=== PATIENT | male | born 1980 | race Caucasian/White ===

== ENCOUNTER 2023-02-09 09:49 | Emergency (ER) | payer MEDICARE, SELFPAY ==
[2023-02-09 10:00] VITALS: BP 105/85; PULSE 96; RESP 20; TEMP 38; O2SAT 97; BMI 25.0
--- NOTE | 2023-02-09 10:11 | EXP.UTC ---
Discharge Plan Disposition Patient Disposition: Home, Self-Care Condition: Good Prescriptions Prescriptions: New xplbmrwyjymxdcs-poqrilyyo-XV [Bromfed DM] 2-30-10 mg/5 mL Syrup 10 ml PO Q4H PRN (Reason: Cough) Qty: 200 0RF Referrals Follow up/Referrals: Iftikhar Tello [Primary Care Provider] - See instructions Activity Restrictions/Add. Instructions Additional Instructions/Restrictions: *Monitor Temp, Over the counter Motrin or Tylenol as directed/as needed Tylenol every 4 hours and Motrin every 6 hours (as long as your family doctor has told you that you can take it) for fever or pain. and straight to ER if unable to lower temp less than 101.0 after medication given *Warm salt water gargles may help to soothe the throat *Throat Lozenges? *Warm fluids like tea with honey may help to soothe the throat? *Sleep elevated *Humidifier/Vaporizer *Bromfed may cause drowsiness. Know how it effects you (your child) before driving, caring for small child, or sending your child to school. Not other antihistamines/allergy medications while taking bromfed Your throat swab was sent for culture. Those results are typically sent to your primary care. Be sure to follow up in 2-3 days with your family doctor/primary care physician if no improvement so they can review those result and treat if necessary. If you don?t have a primary care doctor, I recommend you get one but in the mean time, you will have to return to a walk in clinic Follow up IMMEDIATELY for new or worsening symptoms or no Noticeable improvement over the next 48-72 hours. 911 for difficulty breathing or swallowing You were tested for today for COVID19 your test result should be back in the next 24 hours Your results will be on your [facility] Portal for you to look at there If you are positive you will need to Quarantine for 5 days Clinical Impressions Clinical Impression: Viral syndrome Instructions Patient Instructions: DI for Viral Syndrome, DI for Fever (Symptom) -- Adult Discharge ED Provider: Kenya Coto [facility] HPI General Stated complaint: body ache vomiting dsouza fever 102.1 Mode of Arrival: Ambulatory Source of Information: Patient Limitations: No Limitations Time Seen by Provider: 02/09/23 10:11 Description of Symptoms (Recalled from Triage Doc. by RN): PATIENT C/O COUGH, BODY ACHES, HEADACHE AND FEVER X 1.5 DAYS HEENT Symptoms (Recalled from RN notes): Yes Resp Symptoms (Recalled from RN notes): Yes Skin Symptoms (Recalled from RN notes): No MS Symptoms (Recalled from RN notes): No Functional Status (Recalled from RN notes): WNL History of Present Illness Provider Complaint: Patient state that he hasnt felt well for a couple of days State that he has been having fever, chills, body aches and cough States he isnt coughing anything up and feels like he has the flu or something States that he was up most of the night with fever so this morning he came in to get checked Related Data Previous Rx's Medication Instructions Recorded bayyyoixqtmprsc-ddeqpzjqipxpftm-RD 10 ml PO Q4H PRN Cough #200 mL 02/09/23 2 mg-30 mg-10 mg/5 mL oral syrup (Bromfed DM) Allergies Allergy/AdvReac Type Severity Reaction Status Date / Time No Known Allergies Allergy Verified 02/09/23 10:09 Worker's Comp Is this a Worker's Comp case?: No [facility] Disclaimer: The information contained in this section may have been updated after the patient was seen, as this information can be updated by other users. Medical History (Updated 02/09/23 @ 10:18 by Kenya Coto APRN) Carpal tunnel syndrome Surgical History (Updated 02/09/23 @ 10:10 by Evita Villanueva RN) S/P ACL repair Social History Smoking Status: Unknown if ever smoked alcohol intake: never current occupational status: unemployed Travel in the last 8 weeks: None ROS Obtained: Yes All systems reviewed & no additional complaints except a
[2023-02-09 10:20] VITALS: BP 105/85; PULSE 96; RESP 20; TEMP 38; O2SAT 97
[2023-02-09 10:21] LABS: UTC Influenza A Antigen Negative (Negative)
[2023-02-09 10:22] LABS: UTC Influenza B Antigen Negative (Negative)
== END 2023-02-09 10:26 | disposition home or self-care (01) ==
PROVIDERS: Emergency Provider Nurse Practitioner; PCP Family Medicine
DX: R05.9 Cough, unspecified (principal); R50.9 Fever, unspecified; B34.9 Viral infection, unspecified
CPT/HCPCS: 87635; 87804; 99204; 99212; G0463

== ENCOUNTER 2023-02-13 17:18 | Emergency (ER) | payer MEDICARE, SELFPAY ==
[2023-02-13 18:15] VITALS: BP 149/86; PULSE 86; RESP 19; TEMP 37; O2SAT 98; BMI 25.3
[2023-02-13 18:30] LABS: UTC Influenza A Antigen Negative (Negative)
[2023-02-13 18:31] LABS: UTC Influenza B Antigen Negative (Negative)
--- NOTE | 2023-02-13 18:39 | EXP.UTC ---
Discharge Plan Disposition Patient Disposition: Home, Self-Care Condition: Good Prescriptions Prescriptions: New promethazine-DM 6.25-15 mg/5 mL syrup 5 ml PO Q6H PRN (Reason: cough) Qty: 125 0RF prednisone [prednisone] 20 mg tablet 20 mg PO BID 5 Days Qty: 10 0RF guaifenesin [Mucinex] 600 mg tablet extended release 12hr 1,200 mg PO BID PRN (Reason: cough) Qty: 20 0RF azithromycin [Zithromax Z-Shyam] 250 mg tablet See Rx Instructions .ROUTE .COMPLEX 5 Days Qty: 6 0RF Rx Instructions: For 250 mg dose pack: take 500 mg today (day 1), then 250 mg for 4 days (days 2-5) No Action ugecyesdxlywgqf-ajlvsvezl-KS [Bromfed DM] 2-30-10 mg/5 mL Syrup 10 ml PO Q4H PRN (Reason: Cough) Qty: 200 0RF ondansetron 4 mg Tablet,Disintegrating 4 mg PO Q8H PRN (Reason: Nausea) Qty: 20 0RF Referrals Follow up/Referrals: Iftikhar Tello [Primary Care Provider] - See instructions Activity Restrictions/Add. Instructions Additional Instructions/Restrictions: Start antibiotic today. Be sure to complete entire prescription even if feeling better Monitor temp. Tylenol every 4 hours as needed and / or ibuprofen every 6 hours as needed ( As long as your primary care physician has told you that it ok to take both. For fever/aches/pains ER if no less than 101 despite Tylenol or Motrin Humidifier/vaporizer or hot steamy shower Mucinex during the day for your cough and cough suppressant only at night. Be sure to drink lots of water. *Promethazine DM cough syrup will cause drowsiness. Use only at night. No driving, operating machinery or caring for small children after taking it *Start steroid today. Helps with inflammation therefore, cough and wheezing. Follow directions on the package. Reviewed side effects. Patient reports taking them before. Follow up IMMEDIATELY for new or worsening of symptoms OR no noticeable improvement over the next 48-72 hours. 911 immediately for any life threatening symptoms such as chest pain or difficulty breathing Clinical Impressions Clinical Impression: Bronchitis Sinusitis Qualifiers: Sinusitis location: unspecified location Chronicity: unspecified Qualified Code(s): J32.9 - Chronic sinusitis, unspecified Instructions Patient Instructions: Acute Bronchitis, DI for Sinusitis Discharge ED Provider: Kenya Coto [facility] General Stated complaint: weak, SOA, cough Mode of Arrival: Ambulatory Source of Information: Patient Limitations: No Limitations Time Seen by Provider: 02/13/23 18:39 Description of Symptoms (Recalled from Triage Doc. by RN): PATIENT C/O BODY ACHES, HEADACHE, PRODUCTIVE COUGH, AND FATIGUE X 4 DAYS HEENT Symptoms (Recalled from RN notes): No Resp Symptoms (Recalled from RN notes): Yes Skin Symptoms (Recalled from RN notes): No MS Symptoms (Recalled from RN notes): No Functional Status (Recalled from RN notes): WNL History of Present Illness Provider Complaint: Patient states that he has been sick for over a week States that he has been having sinus congestion, headache, fatigue and cough which is now getting productive States that he is having pressure behind his eyes and over all not feeling any better so he came back in Related Data Previous Rx's Medication Instructions Recorded gelbhstjcxiifwt-zuplhgoevlknlbd-IA 10 ml PO Q4H PRN Cough #200 mL 02/09/23 2 mg-30 mg-10 mg/5 mL oral syrup (Bromfed DM) ondansetron 4 mg disintegrating 4 mg PO Q8H PRN Nausea #20 tabs 02/09/23 tablet azithromycin 250 mg tablet See Rx Instructions PO .COMPLEX 5 02/13/23 (Zithromax Z-Shyam) days #6 tabs guaifenesin 600 mg tablet, 1,200 mg PO BID PRN cough #20 tabs 02/13/23 extended release 12 hr (Mucinex) prednisone 20 mg tablet 20 mg PO BID 5 days #10 tabs 02/13/23 promethazine-DM 6.25 mg-15 mg/5 mL 5 ml PO Q6H PRN cough #125 mL 02/13/23 oral syrup Allergies Allergy/AdvReac Type Severity Reaction Status Date / Time No Known Allergies
[2023-02-13 18:54] VITALS: BP 149/86; PULSE 86; RESP 19; TEMP 37; O2SAT 98
== END 2023-02-13 18:55 | disposition home or self-care (01) ==
PROVIDERS: Emergency Provider Nurse Practitioner; PCP Family Medicine
DX: J20.9 Acute bronchitis, unspecified (principal); J01.90 Acute sinusitis, unspecified
CPT/HCPCS: 87804; 99212; 99214; G0463

== ENCOUNTER 2023-03-11 17:06 | Emergency (ER) | payer MEDICARE, SELFPAY ==
[2023-03-11 17:15] VITALS: BP 107/76; PULSE 90; RESP 16; TEMP 36.8; O2SAT 98; BMI 24.9
--- NOTE | 2023-03-11 17:25 | PC.NURSE ---
dr. sosa at [facility]
[2023-03-11 17:30] VITALS: BP 116/83; PULSE 96; O2SAT 98
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
--- NOTE | 2023-03-11 17:30 | CT_ITS ---
PROCEDURE INFORMATION: Exam: CTA Neck With Contrast Exam date and time: 03/11/2023 6:54 PM Age: 42 years old Clinical indication: Pain; Other: Neck; Additional info: Codey Ling face and neck TECHNIQUE: Imaging protocol: Computed tomographic angiography of the neck with contrast. 3D rendering (Not supervised by radiologist): MIP and/or 3D reconstructed images were created by the technologist. Radiation optimization: All CT scans at this facility use at least one of these dose optimization techniques: automated exposure control; mA and/or kV adjustment per patient size (includes targeted exams where dose is matched to clinical indication); or iterative reconstruction. Contrast material: ISOVUE; Contrast volume: 100 ml; Contrast route: INTRAVENOUS (IV); REPORTING DATA: Count of CT and Cardiac NM exams in prior 12 months: This patient has received 0 known CTs and 0 known cardiac nuclear medicine studies in the 12 months prior to the current study. COMPARISON: CT FACIAL BONES WO CON 03/11/2023 6:46 PM FINDINGS: Right common carotid artery: No stenosis. No dissection or occlusion. Right internal carotid artery: No stenosis of the extracranial segment. No dissection or occlusion. Right external carotid artery: No occlusion or stenosis of the origin. Left common carotid artery: No stenosis. No dissection or occlusion. Left internal carotid artery: No stenosis of the extracranial segment. No dissection or occlusion. Left external carotid artery: No occlusion or stenosis of the origin. Right vertebral artery: No stenosis. No dissection or occlusion. Left vertebral artery: No stenosis. No dissection or occlusion. Soft tissues: Please see the dedicated interpretation of the face for findings in that region. Bones/joints: No acute fracture. IMPRESSION: 1. Please see the dedicated interpretation of the face for findings in that region. 2. No vascular abnormality identified. REFERENCES: NASCET CRITERIA. The degree of stenosis in the cervical segment of the internal carotid artery is based on NASCET criteria. Normal is no stenosis. Mild is less than 50% stenosis. Moderate is 50-69% stenosis. Severe is 70% to 99% stenosis. Total occlusion is no detectable patent lumen.
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
[2023-03-11 18:00] VITALS: BP 115/71; PULSE 88; O2SAT 96
[2023-03-11 18:08] LABS: Basophils % 0.5 % (0.1-2.0); Eosinophils # 0.7 K/mm3 (0.0-0.4); Eosinophils % 13.4 % (0.1-12.0); Hematocrit 43.5 % (42.0-52.0); Hemoglobin 14.3 g/dL (14.1-18.0); Lymphocytes # 2.3 K/mm3 (0.7-4.5); Lymphocytes % 45.1 % (10-50); Mean Platelet Volume 8.6 fl (7.4-10.4); Monocytes # 0.3 K/mm3 (0.1-1.0); Monocytes % 4.9 % (1.7-9.3); Neutrophils # 1.8 K/mm3 (1.8-7.8); Neutrophils % 36.2 % (37.0-80.0); Platelet Count 254 K/mm3 (142-424); Red Blood Count 4.63 M/mm3 (4.60-6.20); Red Cell Distribution Width 13.9 % (11.5-17.5)
[2023-03-11 18:10] LABS: Anion Gap 15.3 mEq/L (5-15); Blood Urea Nitrogen 9 mg/dl (9-20); Calcium 9.2 mg/dl (8.4-10.2); Carbon Dioxide 24 mmol/L (22.0-30.0); Chloride 108 mmol/L (98-107); Creatinine Clearance Estimated 147 mL/min (50-200); Estimated Glomerular Filt Rate 107 ml/min (>60); GFR (African American) 129 ML/MIN (>60); Glucose 110 mg/dl (74-100); Potassium 4.3 mmoL/L (3.5-5.1); Sodium 143 mmol/L (136-145)
[2023-03-11 18:30] VITALS: BP 97/53; PULSE 77; O2SAT 96
--- NOTE | 2023-03-11 18:41 | PC.NURSE ---
pt to CT
--- NOTE | 2023-03-11 19:47 | PC.NURSE ---
rounded on pt no needs at this time
[2023-03-11 19:57] VITALS: BP 94/60; PULSE 88; RESP 16; TEMP 36.7
== END 2023-03-11 20:00 | disposition home or self-care (01) ==
PROVIDERS: Emergency Provider Emergency Medicine; PCP Family Medicine
DX: S02.2XXA Fracture of nasal bones, initial encounter for closed fracture (principal); R68.84 Jaw pain; F17.210 Nicotine dependence, cigarettes, uncomplicated; W22.8XXA Striking against or struck by other objects, initial encounter
CPT/HCPCS: 70486; 70498; 80048; 85025; 99284; Q9967

== ENCOUNTER 2023-04-12 11:53 | Emergency (ER) | payer MEDICARE, SELFPAY ==
[2023-04-12 11:54] VITALS: BP 114/75; PULSE 103; RESP 22; TEMP 36.9; O2SAT 96; BMI 24.4
--- NOTE | 2023-04-12 12:04 | EXP.UTC ---
Discharge Plan Disposition Patient Disposition: Home, Self-Care Condition: Good Prescriptions Prescriptions: New benzonatate [benzonatate] 100 mg capsule 100 mg PO TIDP PRN (Reason: Cough) Qty: 30 0RF methylprednisolone 4 mg Tablets,Dose Pack 4 mg PO DIRECTED Qty: 21 0RF amoxicillin-pot clavulanate 875-125 mg Tablet 1 tab PO Q12H Qty: 20 0RF No Action xzrokmxozvsqetv-axwpxouyy-DZ [Bromfed DM] 2-30-10 mg/5 mL Syrup 10 ml PO Q4H PRN (Reason: Cough) Qty: 200 0RF ondansetron 4 mg Tablet,Disintegrating 4 mg PO Q8H PRN (Reason: Nausea) Qty: 20 0RF promethazine-DM 6.25-15 mg/5 mL syrup 5 ml PO Q6H PRN (Reason: cough) Qty: 125 0RF prednisone [prednisone] 20 mg tablet 20 mg PO BID 5 Days Qty: 10 0RF guaifenesin [Mucinex] 600 mg tablet extended release 12hr 1,200 mg PO BID PRN (Reason: cough) Qty: 20 0RF azithromycin [Zithromax Z-Shyam] 250 mg tablet See Rx Instructions .ROUTE .COMPLEX 5 Days Qty: 6 0RF Rx Instructions: For 250 mg dose pack: take 500 mg today (day 1), then 250 mg for 4 days (days 2-5) Referrals Follow up/Referrals: Dallas Villeda [Primary Care Provider] - See instructions Activity Restrictions/Add. Instructions Additional Instructions/Restrictions: Drink plenty of fluids. Take tylenol or ibuprofen for pain or fever. Take the medications as directed. Follow up with your regular doctor. GO TO THE ER FOR ANY WORSENING SYMPTOMS Clinical Impressions Clinical Impression: Sinusitis, Bronchitis Instructions Patient Instructions: Sinusitis, DI for Sinusitis Discharge ED Provider: Bethel Nunez [facility] General Stated complaint: PAIN IN EYES, JAW, AND CHEEKS Time Seen by Provider: 04/12/23 12:04 History of Present Illness Provider Complaint: He states that for the past 2 weeks he has had a cough and chest congestion. He states that for the past 2 days he has pressure and pain in his maxillary sinus area. Related Data Previous Rx's Medication Instructions Recorded pwmfrdekjzrjxac-yjmpbvqvuntzgez-UK 10 ml PO Q4H PRN Cough #200 mL 02/09/23 2 mg-30 mg-10 mg/5 mL oral syrup (Bromfed DM) ondansetron 4 mg disintegrating 4 mg PO Q8H PRN Nausea #20 tabs 02/09/23 tablet azithromycin 250 mg tablet See Rx Instructions PO .COMPLEX 5 02/13/23 (Zithromax Z-Shyam) days #6 tabs guaifenesin 600 mg tablet, 1,200 mg PO BID PRN cough #20 tabs 02/13/23 extended release 12 hr (Mucinex) prednisone 20 mg tablet 20 mg PO BID 5 days #10 tabs 02/13/23 promethazine-DM 6.25 mg-15 mg/5 mL 5 ml PO Q6H PRN cough #125 mL 02/13/23 oral syrup amoxicillin 875 mg-potassium 1 tab PO Q12H #20 tabs 04/12/23 clavulanate 125 mg tablet benzonatate 100 mg capsule 100 mg PO TIDP PRN Cough #30 caps 04/12/23 methylprednisolone 4 mg tablets in 4 mg PO DIRECTED #21 tabs 04/12/23 a dose pack Allergies Allergy/AdvReac Type Severity Reaction Status Date / Time No Known Allergies Allergy Verified 02/09/23 10:09 [facility] Disclaimer: The information contained in this section may have been updated after the patient was seen, as this information can be updated by other users. Medical History (Updated 04/12/23 @ 12:33 by Bethel Nunez APRN) Carpal tunnel syndrome Surgical History (Updated 02/09/23 @ 10:10 by Evita Villanueva RN) S/P ACL repair Social History (Updated 02/09/23 @ 10:19 by Kenya Coto APRN) Smoking Status: Current every day smoker alcohol intake: never current occupational status: unemployed Travel in the last 8 weeks: None ROS Obtained: Yes All systems reviewed & no additional complaints except as documented Constitutional Constitutional: Reports poor appetite Eyes Eyes: Reports system reviewed and no additional complaints, except as documented ENT Ears, Nose, Mouth, and Throat: Reports as per HPI Cardiovascular Cardiovascular: Reports system reviewed and no additional complaints, except as documented and Denies chest
[2023-04-12 12:38] VITALS: BP 114/75; PULSE 103; RESP 15; TEMP 36.9; O2SAT 96
== END 2023-04-12 12:39 | disposition home or self-care (01) ==
PROVIDERS: Emergency Provider Nurse Practitioner Family; PCP Family Medicine
DX: J20.9 Acute bronchitis, unspecified (principal); J01.90 Acute sinusitis, unspecified; R05.9 Cough, unspecified; R09.81 Nasal congestion; F17.210 Nicotine dependence, cigarettes, uncomplicated
CPT/HCPCS: 87635; 99212; 99214; G0463

== ENCOUNTER 2024-05-13 17:18 | Emergency (ER) | payer MEDICARE, SELFPAY ==
--- NOTE | 2024-05-13 19:01 | ED_ITS ---
<Statement entered by Mellissa Bob DO - 05/14/24 00:15> I was consulted by the JOSELINE, and we discussed the complexity of the problems being addressed. I approved the treatment and management plan for this patient's care in the emergency department, thus performing a substantive portion of the medical decision making. Mellissa Bob DO Discharge Plan Disposition Patient Disposition: Home, Self-Care Condition: Good Prescriptions Prescriptions: New vrlmclixlbcgste-hrsqkbjwm-JV [Bromfed DM] 2-30-10 mg/5 mL syrup 5 ml PO Q4H PRN (Reason: sinus symptoms) Qty: 118 0RF amoxicillin-pot clavulanate 875-125 mg tablet 1 tab PO BID Qty: 20 0RF No Action qktuddfwlkwaupk-pixkgzwwu-FF [Bromfed DM] 2-30-10 mg/5 mL Syrup 10 ml PO Q4H PRN (Reason: Cough) Qty: 200 0RF ondansetron 4 mg Tablet,Disintegrating 4 mg PO Q8H PRN (Reason: Nausea) Qty: 20 0RF benzonatate [benzonatate] 100 mg capsule 100 mg PO TIDP PRN (Reason: Cough) Qty: 30 0RF methylprednisolone 4 mg Tablets,Dose Pack 4 mg PO DIRECTED Qty: 21 0RF amoxicillin-pot clavulanate 875-125 mg Tablet 1 tab PO Q12H Qty: 20 0RF promethazine-DM 6.25-15 mg/5 mL syrup 5 ml PO Q6H PRN (Reason: cough) Qty: 125 0RF prednisone [prednisone] 20 mg tablet 20 mg PO BID 5 Days Qty: 10 0RF guaifenesin [Mucinex] 600 mg tablet extended release 12hr 1,200 mg PO BID PRN (Reason: cough) Qty: 20 0RF azithromycin [Zithromax Z-Shyam] 250 mg tablet See Rx Instructions .ROUTE .COMPLEX 5 Days Qty: 6 0RF Rx Instructions: For 250 mg dose pack: take 500 mg today (day 1), then 250 mg for 4 days (days 2-5) Referrals Follow up/Referrals: Provider,Referral, MD [Primary Care Provider] - See instructions Activity Restrictions/Add. Instructions Additional Instructions/Restrictions: Please continue taking Tylenol alternating with Motrin every 4 hours for symptoms. I have sent both a prescription and a cough decongestant to your pharmacy. Please take antibiotics till it is completely gone. Follow-up with your PCP for no improvement or worsening signs or symptoms or return to the ER as needed. Clinical Impressions Clinical Impression: Strep pharyngitis Print Language Print Language: [place] Discharge ED Provider: Mellissa Bob General Adult HPI General Chief complaint: Upper Respiratory Infection Stated complaint: sore throat congestion fever Time Seen by Provider: 05/13/24 19:01 History of Present Illness HPI narrative: Patient presents for evaluation of sore throat cough headache congestion and fever. Patient has 3 days of cough congestion sore throat and fever. He has tried Tylenol Motrin without relief. Patient states his primary complaint is a sore throat. He denies shortness of breath hemoptysis hematochezia melena nausea vomiting diarrhea. Related Data Previous Rx's ?Medication ?Instructions ?Recorded wryefbazdzjekoz-bxylpasvsmnbwvb-IG 10 ml PO Q4H PRN Cough #200 mL 02/09/23 2 mg-30 mg-10 mg/5 mL oral syrup (Bromfed DM) ondansetron 4 mg disintegrating 4 mg PO Q8H PRN Nausea #20 tabs 02/09/23 tablet azithromycin 250 mg tablet See Rx Instructions PO .COMPLEX 5 02/13/23 (Zithromax Z-Shyam) days #6 tabs guaifenesin 600 mg tablet, 1,200 mg (2 x 600 mg) PO BID PRN 02/13/23 extended release 12 hr (Mucinex) cough #20 tabs prednisone 20 mg tablet 20 mg PO BID 5 days #10 tabs 02/13/23 promethazine-DM 6.25 mg-15 mg/5 mL 5 ml PO Q6H PRN cough #125 mL 02/13/23 oral syrup amoxicillin 875 mg-potassium 1 tab PO Q12H #20 tabs 04/12/23 clavulanate 125 mg tablet benzonatate 100 mg capsule 100 mg PO TIDP PRN Cough #30 caps 04/12/23 methylprednisolone 4 mg tablets in 4 mg PO DIRECTED #21 tabs 04/12/23 a dose pack amoxicillin 875 mg-potassium 1 tab PO BID #20 tabs 05/13/24 clavulanate 125 mg tablet djtdulauolktpij-kzmgxangqyjaaiu-CM 5 ml PO Q4H PRN sinus symptoms 05/13/24 2 mg-30 mg-10 mg/5 mL oral syrup #118 mL (Bromfed DM) Allergies Allergy/AdvReac Type Severity Reaction Status Date / Time No Known Allergies Allergy Verified 02/09/23 10:09 [facility] Disclaimer: The information contained in this section may have been updated after the patient was seen, as this information can be updated by other users. Medical History (Updated 05/13/24 @ 20:08 by GLORY Iraheta) Carpal tunnel syndrome Surgical History (Updated 02/09/23 @ 10:10 by Evita Villanueva RN) S/P ACL repair Social History (Updated 02/09/23 @ 10:19 by Kenya Coto APRN) Smoking Status: Current every day smoker alcohol intake: never current occupational status: unemployed Travel in the last 8 weeks: None Have you lived/traveled outside [place] in past 30 days?: No Contact w/someone who lives/traveled outside [place] past 30 days?: No Exposure to someone with infectious disease in past 14 days?: No Do you have a fever (greater than 100.4 F or 38 C)?: Yes Have you tested positive for COVID-19: No Exposed to someone with COVID-19 in past 14 days?: Yes Do you have a sore throat?: Yes Do you have a cough?: Yes Do you have any weakness?: No Do you have any diarrhea?: No Are you experiencing any unusual bleeding?: No Do you have any muscle aches/pain?: No Do you have any abdominal pain?: No Are you experiencing loss of taste or smell?: No ROS Obtained: Yes Systems reviewed as appropriate & no additional complaints except as documented Physical Exam General General appearance: alert and in no apparent distress Respiratory Respiratory exam: Present normal lung sounds bilaterally Cardiovascular Cardiovascular exam: Present regular rate Neurological Exam Neurological exam: Present alert and oriented X3 Medical Decision Making Medical Records Screening: Per USPSTF and CDC recommendations, given the prevalence of disease in our region, it is our hospital?s policy to screen for HIV and viral Hepatitis for all patients aged 18 and over and those with ongoing risk factors. John Inquiry Pt receiving controlled substance: No Vital Signs: 05/13/24 19:04 Temperature 98.7 F Temperature Source Oral Pulse Rate [Left Radial] 94 H Respiratory Rate 18 Blood Pressure [Right Arm] 116/66 Blood Pressure Mean [Right Arm] 82 02 Sat by Pulse Oximetry 97 Oxygen Delivery Method Room Air Lab Data Lab results reviewed: Yes I reviewed the patient's lab results. Lab Results 05/13/24 19:08: POC RSV Rapid Negative, Group A Strep Rapid Positive A Orders (Tests/Meds): ED MEDICATIONS Discontinued Medications Generic Name Dose Route Start Last Admin Trade Name [place] PRN Reason Stop Dose Admin Acetaminophen 1,000 mg 05/13/24 19:07 05/13/24 19:19 Acetaminophen 500mg Tab PO 05/13/24 19:08 Not Given ONCE ONE Ibuprofen 800 mg 05/13/24 19:07 05/13/24 19:19 Ibuprofen 400 Mg Tablet PO 05/13/24 19:08 Not Given ONCE ONE ORDERS Category Date Time Status RSV Rapid Ab Screen Stat Lab 05/13/24 19:08 Completed Rapid PCR Covid and Flu A/B Stat Lab 05/13/24 19:08 Received Rapid Strep Scrn Group A [Strep Scrn Group A (Rapid)] Lab 05/13/24 19:08 Completed Stat Medical Decision Narrative: In summary patient is a 43-year-old male who presents to the emergency department for evaluation of upper respiratory tract infection and pharyngitis. Patient is hemodynamically stable upon arrival, afebrile. Physical exam is remarkable for a very erythematous posterior pharynx however there is no visible exudate currently there is clear rhinorrhea. He has boggy nasal mucosa but again clear rhinorrhea. Breath sounds clear and equal bilaterally to the bases with adventitious sounds.. Differential diagnosis includes viral versus bacterial upper respiratory tract infection. Initial workup will be conducted with COVID flu RSV strep swabs. Initial interventions were considered however patient took Tylenol Motrin prior to arrival here in the emergency department thus deferred. Initial workup reviewed by me shows that he is strep positive.. Given this patient will be given a prescription for Augmentin with first dose given here a prescription for Bromfed sent to his pharmacy and strict return p recautions. Critical Care Critical Care Time Critical Care Time: No
[2024-05-13 19:04] VITALS: BP 116/66; PULSE 94; RESP 18; TEMP 37.1; O2SAT 97; BMI 24.4
[2024-05-13 19:16] LABS: Coronavirus 19, PCR Not Detected (NotDetected); Influenza A, PCR Not Detected (NotDetected); Influenza B, PCR Not Detected (NotDetected)
[2024-05-13 19:44] LABS: RSV Rapid Ab Screen Negative (Negative); Strep Scrn Group A (Rapid) Positive (Negative)
[2024-05-13] MEDS: AMOXICILLIN/CLAVULANATE POTASSIUM 875/125MG TABLET 1 EACH PO (20:13)
[2024-05-13 20:18] VITALS: BP 119/75; PULSE 88; RESP 18; TEMP 37.1; O2SAT 98
== END 2024-05-13 20:15 | disposition home or self-care (01) ==
LOC: UTC 17:24 → ER 18:58
PROVIDERS: Physician Assistant; Emergency Provider Emergency Medicine
DX: J02.0 Streptococcal pharyngitis (principal); J02.9 Acute pharyngitis, unspecified; R05.9 Cough, unspecified; R51.9 Headache, unspecified; R09.81 Nasal congestion; R50.9 Fever, unspecified; Z72.0 Tobacco use
CPT/HCPCS: 87430; 87636; 87807; 99283